=== PATIENT | male | born 1945 | race Caucasian/White ===

== ENCOUNTER 2019-10-23 11:34 | Inpatient (IN) ==
[2019-10-23] MEDS ORDERED: MOM Conc 10 ML UD.LIQ PO PRN (14:57)
[2019-10-23] MEDS ORDERED: Mag Hydrox/Al Hydrox/Simeth 30 ML UDC PO PRN (14:57)
[2019-10-23] MEDS ORDERED: Naloxone 0.4 MG/ML INJ IVP PRN (14:57)
[2019-10-23] MEDS ORDERED: Acetaminophen 325 MG TABLET PO PRN (14:57)
[2019-10-23] MEDS ORDERED: *HR* Promethazine 25 MG/ML VIAL IVP PRN (14:57)
[2019-10-23] MEDS ORDERED: Ondansetron 4 MG/2 ML VIAL IVP PRN (14:57)
[2019-10-23] MEDS: *HR* Heparin 5,000 UNIT/ML VIAL SQ SCH (17:44)
[2019-10-24 05:18] LABS: INR 1.2; Prothrombin Time 13.2 Seconds (9.4-12.1)
[2019-10-24 05:20] LABS: Basophils % 0.6 %; Eosinophils # 0.1 K/mcL (0.0-0.6); Eosinophils % 2.5 %; Hemoglobin 14.5 g/dL (12.9-16.9); Immature Granulocytes % 0.2 % (0-4); Lymphocytes # 0.8 K/mcL (0.6-4.6); Lymphocytes % 16.8 %; Mean Corpuscular Volume 94.2 fL (83.0-100.0); Mean Platelet Volume 9.9 fL (9.4-12.4); Monocytes # 0.4 K/mcL (0.0-1.3); Neutrophils # 3.4 K/mcL (1.6-8.9); Platelet Count 202 K/mcL (140-400); Red Blood Count 4.67 M/mcL (4.19-5.50); Red Cell Distribution Width 11.9 % (11.5-14.5); Segmented Neutrophils % 70.9 %; White Blood Count 4.8 K/mcL (4.3-11.1)
[2019-10-24] MEDS: *HR* Heparin 5,000 UNIT/ML VIAL SQ SCH ×2 (05:29→17:41)
[2019-10-24 05:42] LABS: BUN/Creatinine Ratio 16 (6-26); Blood Urea Nitrogen 16 mg/dL (8-23); Calcium 9.2 mg/dL (8.6-10.3); Carbon Dioxide 24 mEq/L (23-29); Chloride 107 mEq/L (98-107); Chol/HDL Ratio 3.5 (0-4.9); Cholesterol 183 mg/dL (< 200); Glucose 95 mg/dL (70-105); HDL Cholesterol 52 mg/dL (40-59); LDL Cholesterol,Calculated 108 mg/dL (0-99); Magnesium 2.2 mg/dL (1.6-2.6); Osmolality,Calculated 291 (280-300); Potassium 3.9 mEq/L (3.5-5.1); Sodium 140 mEq/L (136-145); Triglycerides 116 mg/dL (< 150); eGFR For African Americans > 60 (> 60); eGFR For Non-African Americans > 60 (> 60)
[2019-10-24] MEDS ORDERED: E-Z-HD (BARIUM SULF) SUSPENSION PO ONE (09:18)
[2019-10-24] MEDS ORDERED: E-Z-PAQUE (BARIUM SULF) SUSP 1 BOTTLE PO ONE (09:18)
[2019-10-24] MEDS: Aspirin Enteric Coated 81 MG Tablet PO SCH (11:10)
[2019-10-24] MEDS ORDERED: Isovue-370 500 ML BOTTLE IVP ONE (13:13)
[2019-10-25] MEDS: *HR* Heparin 5,000 UNIT/ML VIAL SQ SCH (05:15)
[2019-10-25 07:21] VITALS: BP 145/74
[2019-10-25] MEDS: Aspirin Enteric Coated 81 MG Tablet PO SCH (08:21)
[2019-10-25] MEDS ORDERED: Psyllium 1 PACKET POWD.PACK PO SCH (09:00)
[2019-10-25] MEDS ORDERED: lisinopriL 10 MG TABLET PO SCH (09:00)
[2019-10-25] MEDS ORDERED: Cholecalciferol (D-3) 1,000 UNIT (25MCG) TABLET PO SCH (09:00)
== END 2019-10-25 09:30 | disposition home or self-care (01) ==
LOC: 3BNU
PROVIDERS: ADMIT Internal Medicine; ATTEND Internal Medicine

== ENCOUNTER 2019-10-30 16:00 | Inpatient (IN) ==
[2019-10-30] MEDS ORDERED: Aspirin 325 MG TABLET PO ONE (16:45)
[2019-10-30 16:52] LABS: INR 1.3; Prothrombin Time 14.4 Seconds (9.4-12.1)
[2019-10-30 16:53] LABS: Hematocrit 44.9 % (37.5-50.1); Hemoglobin 15.7 g/dL (12.9-16.9); Mean Corpuscular Hemoglobin 32.3 pg (28.0-33.3); Mean Corpuscular Volume 92.4 fL (83.0-100.0); Mean Platelet Volume 9.4 fL (9.4-12.4); Platelet Count 257 K/mcL (140-400); Red Blood Count 4.86 M/mcL (4.19-5.50); White Blood Count 6.1 K/mcL (4.3-11.1)
[2019-10-30 16:55] LABS: Activated Partial Thrombo Time 26.4 Seconds (26.0-36.0)
[2019-10-30 17:08] LABS: Alanine Aminotransferase 23 Units/L (7-52); Albumin 4.2 g/dL (3.5-5.7); Albumin/Globulin Ratio 1.6 (1.1-2.2); Alkaline Phosphatase 67 Units/L (34-104); Aspartate Amino Transferase 15 Units/L (13-39); BUN/Creatinine Ratio 22 (6-26); Bilirubin,Total 0.9 mg/dL (0.3-1.0); Blood Urea Nitrogen 20 mg/dL (8-23); Calcium 9.3 mg/dL (8.6-10.3); Carbon Dioxide 24 mEq/L (23-29); Chloride 107 mEq/L (98-107); Globulin 2.7 g/dL (2.4-3.5); Glucose 103 mg/dL (70-105); Osmolality,Calculated 287 (280-300); Potassium 3.6 mEq/L (3.5-5.1); Sodium 137 mEq/L (136-145); Total Protein 6.9 g/dL (6.4-8.9); eGFR For African Americans > 60 (> 60); eGFR For Non-African Americans > 60 (> 60)
[2019-10-30] MEDS ORDERED: Ondansetron ODT 4 MG TAB.RAPDIS SL PRN (17:47)
[2019-10-30] MEDS ORDERED: Acetaminophen 325 MG TABLET PO PRN (17:47)
[2019-10-30] MEDS ORDERED: Gadolinium Contrast Agent (WT Based) IV PRN (18:37)
[2019-10-30 18:52] LABS: Bilirubin,Urine Small (Negative); Blood,Urine Negative (Negative); Clarity,Urine Clear (Clear); Color,Urine Yellow (Yellow); Glucose,Urine (UA) Normal (Normal); Ketones,Urine 15 mg/dL (Negative); Leukocyte Esterase,Urine Negative (Negative); Nitrite,Urine Negative (Negative); PH,Urine 5.5 pH Units (5.0-8.0); Protein,Urine Negative (Neg-Trace); Urobilinogen,Urine Normal (Normal)
[2019-10-31 05:11] LABS: Basophils # 0.1 K/mcL (0.0-0.2); Basophils % 0.9 %; Eosinophils # 0.1 K/mcL (0.0-0.6); Hematocrit 44.1 % (37.5-50.1); Hemoglobin 15.5 g/dL (12.9-16.9); Immature Granulocytes % 0.4 % (0-4); Lymphocytes # 0.9 K/mcL (0.6-4.6); Lymphocytes % 12.5 %; Mean Corpuscular HGB Conc 35.1 g/dL (31.6-35.5); Mean Corpuscular Hemoglobin 32.5 pg (28.0-33.3); Mean Corpuscular Volume 92.5 fL (83.0-100.0); Mean Platelet Volume 9.4 fL (9.4-12.4); Monocytes # 0.6 K/mcL (0.0-1.3); Monocytes % 8.9 %; Neutrophils # 5.4 K/mcL (1.6-8.9); Platelet Count 252 K/mcL (140-400); Red Blood Count 4.77 M/mcL (4.19-5.50); Red Cell Distribution Width 11.9 % (11.5-14.5); Segmented Neutrophils % 76.3 %; White Blood Count 7.1 K/mcL (4.3-11.1)
[2019-10-31 05:29] LABS: BUN/Creatinine Ratio 21 (6-26); Blood Urea Nitrogen 20 mg/dL (8-23); Calcium 9.1 mg/dL (8.6-10.3); Carbon Dioxide 23 mEq/L (23-29); Chloride 108 mEq/L (98-107); Chol/HDL Ratio 2.8 (0-4.9); Glucose 104 mg/dL (70-105); Osmolality,Calculated 287 (280-300); Potassium 3.8 mEq/L (3.5-5.1); Sodium 137 mEq/L (136-145); eGFR For African Americans > 60 (> 60); eGFR For Non-African Americans > 60 (> 60)
[2019-10-31] MEDS ORDERED: Isovue-370 500 ML BOTTLE IVP ONE (08:07)
[2019-10-31] MEDS ORDERED: Aspirin 81 MG TAB.CHEW PO SCH (09:00)
[2019-10-31] MEDS ORDERED: E-Z-HD (BARIUM SULF) SUSPENSION PO ONE (09:51)
[2019-10-31] MEDS ORDERED: E-Z-PAQUE (BARIUM SULF) SUSP 1 BOTTLE PO ONE (09:51)
[2019-10-31 10:30] LABS: Estimated Average Glucose 126 mg/dl
[2019-10-31] MEDS ORDERED: *HR* Rivaroxaban 10 MG TABLET PO SCH (17:00)
[2019-10-31] MEDS ORDERED: *HR* Heparin 5,000 UNIT/ML VIAL IVP PRN ×2 (21:20)
[2019-10-31 21:50] LABS: Hemoglobin 15.8 g/dL (12.9-16.9); Mean Corpuscular HGB Conc 34.3 g/dL (31.6-35.5); Mean Corpuscular Hemoglobin 32.2 pg (28.0-33.3); Mean Corpuscular Volume 93.9 fL (83.0-100.0); Mean Platelet Volume 9.2 fL (9.4-12.4); Platelet Count 254 K/mcL (140-400); Red Cell Distribution Width 12.2 % (11.5-14.5); White Blood Count 8.7 K/mcL (4.3-11.1)
[2019-10-31 21:56] LABS: INR 1.3; Prothrombin Time 14.8 Seconds (9.4-12.1)
[2019-10-31 21:58] LABS: Activated Partial Thrombo Time 27.7 Seconds (26.0-36.0)
[2019-10-31 21:59] LABS: Heparin anti-factor XA UFH < 0.04 IU/mL (0.30-0.70)
[2019-10-31] MEDS: lisinopriL 10 MG TABLET PO SCH (22:52)
[2019-10-31] MEDS: Heparin 25,000 UNIT/250 ML D5W 25,000 UNIT/250 ML IV.SOLN IVC SCH (23:13)
[2019-10-31] MEDS: 0.9 % Sodium Chloride 1,000 ML IVC SCH (23:13)
[2019-11-01 06:50] LABS: Hematocrit 44.9 % (37.5-50.1); Hemoglobin 15.2 g/dL (12.9-16.9); Mean Corpuscular HGB Conc 33.9 g/dL (31.6-35.5); Mean Corpuscular Hemoglobin 31.9 pg (28.0-33.3); Mean Corpuscular Volume 94.3 fL (83.0-100.0); Mean Platelet Volume 9.7 fL (9.4-12.4); Platelet Count 226 K/mcL (140-400); Red Blood Count 4.76 M/mcL (4.19-5.50); Red Cell Distribution Width 12.2 % (11.5-14.5)
[2019-11-01 07:10] LABS: BUN/Creatinine Ratio 23 (6-26); Blood Urea Nitrogen 24 mg/dL (8-23); Calcium 8.9 mg/dL (8.6-10.3); Carbon Dioxide 23 mEq/L (23-29); Chloride 108 mEq/L (98-107); Glucose 102 mg/dL (70-105); Osmolality,Calculated 296 (280-300); Potassium 3.6 mEq/L (3.5-5.1); Sodium 141 mEq/L (136-145); eGFR For African Americans > 60 (> 60); eGFR For Non-African Americans > 60 (> 60)
[2019-11-01] MEDS: lisinopriL 10 MG TABLET PO SCH (07:23)
[2019-11-01] MEDS ORDERED: Cholecalciferol (D-3) 1,000 UNIT (25MCG) TABLET PO SCH (09:00)
[2019-11-01] MEDS ORDERED: D5% in 0.9% NACL 1,000 ML IVC ONE (12:42)
[2019-11-01] MEDS ORDERED: *HR* Rivaroxaban 10 MG TABLET ONE ×2 (14:29)
[2019-11-01] MEDS: 0.9 % Sodium Chloride 1,000 ML IVC SCH (16:22)
[2019-11-02 03:39] LABS: Hematocrit 42.8 % (37.5-50.1); Hemoglobin 14.7 g/dL (12.9-16.9); Mean Corpuscular HGB Conc 34.3 g/dL (31.6-35.5); Mean Corpuscular Hemoglobin 32.1 pg (28.0-33.3); Mean Corpuscular Volume 93.4 fL (83.0-100.0); Mean Platelet Volume 9.6 fL (9.4-12.4); Platelet Count 219 K/mcL (140-400); Red Blood Count 4.58 M/mcL (4.19-5.50); Red Cell Distribution Width 12.2 % (11.5-14.5)
[2019-11-02 03:40] LABS: White Blood Count 10.5 K/mcL (4.3-11.1)
[2019-11-02 03:49] LABS: INR 1.6; Prothrombin Time 17.9 Seconds (9.4-12.1)
[2019-11-02 04:01] LABS: BUN/Creatinine Ratio 20 (6-26); Blood Urea Nitrogen 18 mg/dL (8-23); Calcium 8.7 mg/dL (8.6-10.3); Carbon Dioxide 23 mEq/L (23-29); Chloride 109 mEq/L (98-107); Glucose 117 mg/dL (70-105); Osmolality,Calculated 295 (280-300); Potassium 3.3 mEq/L (3.5-5.1); Sodium 141 mEq/L (136-145); eGFR For African Americans > 60 (> 60); eGFR For Non-African Americans > 60 (> 60)
[2019-11-02] MEDS: Heparin 25,000 UNIT/250 ML D5W 25,000 UNIT/250 ML IV.SOLN IVC SCH (05:19)
[2019-11-02] MEDS ORDERED: Potassium Chloride Elixir 20 MEQ/15 ML UDC GTUBE ONE ×3 (05:40→12:00)
[2019-11-02] MEDS: 0.9 % Sodium Chloride 1,000 ML IVC SCH (06:21)
[2019-11-02] MEDS: Aspirin 81 MG TAB.CHEW GTUBE SCH (10:18)
[2019-11-02] MEDS: lisinopriL 10 MG TABLET GTUBE SCH (10:18)
[2019-11-02] MEDS ORDERED: *HR* Rivaroxaban 10 MG TABLET PO SCH (17:00)
[2019-11-02] MEDS: *HR* Rivaroxaban 10 MG TABLET GTUBE SCH (17:28)
[2019-11-02] MEDS ORDERED: Scopolamine Patch 1.5 MG PATCH.TD72 TD ONE (23:10)
[2019-11-03 04:12] LABS: INR 1.6; Prothrombin Time 18.5 Seconds (9.4-12.1)
[2019-11-03 04:13] LABS: Hematocrit 43.6 % (37.5-50.1); Hemoglobin 14.7 g/dL (12.9-16.9); Mean Corpuscular HGB Conc 33.7 g/dL (31.6-35.5); Mean Corpuscular Hemoglobin 31.1 pg (28.0-33.3); Mean Corpuscular Volume 92.2 fL (83.0-100.0); Mean Platelet Volume 9.8 fL (9.4-12.4); Platelet Count 216 K/mcL (140-400); Red Blood Count 4.73 M/mcL (4.19-5.50); Red Cell Distribution Width 12.1 % (11.5-14.5); White Blood Count 9.6 K/mcL (4.3-11.1)
[2019-11-03 04:25] LABS: BUN/Creatinine Ratio 21 (6-26); Blood Urea Nitrogen 15 mg/dL (8-23); Calcium 8.8 mg/dL (8.6-10.3); Carbon Dioxide 24 mEq/L (23-29); Chloride 107 mEq/L (98-107); Glucose 113 mg/dL (70-105); Osmolality,Calculated 288 (280-300); Potassium 3.6 mEq/L (3.5-5.1); Sodium 138 mEq/L (136-145); eGFR For African Americans > 60 (> 60); eGFR For Non-African Americans > 60 (> 60)
[2019-11-03] MEDS: Aspirin 81 MG TAB.CHEW GTUBE SCH (08:56)
[2019-11-03] MEDS: lisinopriL 10 MG TABLET GTUBE SCH (08:56)
[2019-11-03] MEDS: *HR* Rivaroxaban 10 MG TABLET GTUBE SCH (16:01)
[2019-11-04] MEDS ORDERED: polyethylene glycoL 3350 17 GM POWD.PACK PO PRN (04:15)
[2019-11-04] MEDS: Aspirin 81 MG TAB.CHEW GTUBE SCH (07:58)
[2019-11-04] MEDS: lisinopriL 10 MG TABLET GTUBE SCH (07:58)
[2019-11-04] MEDS ORDERED: E-Z-PAQUE (BARIUM SULF) SUSP 1 BOTTLE PO ONE (10:49)
[2019-11-04] MEDS: Scopolamine Patch 1.5 MG PATCH.TD72 TD SCH (12:26)
[2019-11-05] MEDS: lisinopriL 10 MG TABLET GTUBE SCH (07:57)
[2019-11-05] MEDS: Aspirin 81 MG TAB.CHEW GTUBE SCH (08:37)
[2019-11-05] MEDS: polyethylene glycoL 3350 17 GM POWD.PACK GTUBE PRN (20:46)
[2019-11-06] MEDS ORDERED: Ondansetron 4 MG/2 ML VIAL IVP ONE (01:36)
[2019-11-06] MEDS ORDERED: Lidocaine -MPF 2% 2 ML VIAL ONE ×3 (10:39→12:06)
[2019-11-06] MEDS: lisinopriL 10 MG TABLET GTUBE SCH (12:01)
[2019-11-06] MEDS: Aspirin 81 MG TAB.CHEW GTUBE SCH (12:01)
[2019-11-06] MEDS ORDERED: *HR* PHENYLEPHRINE 1,000 MCG/10 ML SYRINGE IVP ONE (12:07)
[2019-11-06] MEDS: *HR* Rivaroxaban 10 MG TABLET GTUBE SCH (16:11)
[2019-11-07] MEDS: Scopolamine Patch 1.5 MG PATCH.TD72 TD SCH (12:53)
[2019-11-07] MEDS: lisinopriL 10 MG TABLET GTUBE SCH (12:53)
[2019-11-07] MEDS: Aspirin 81 MG TAB.CHEW GTUBE SCH (12:53)
[2019-11-07] MEDS: *HR* Rivaroxaban 10 MG TABLET GTUBE SCH (17:10)
[2019-11-08] MEDS ORDERED: Ipratropium/Albuterol Neb 3 ML IH ONE (05:18)
[2019-11-08] MEDS: Aspirin 81 MG TAB.CHEW GTUBE SCH (09:49)
[2019-11-08] MEDS: lisinopriL 10 MG TABLET GTUBE SCH (16:24)
[2019-11-08] MEDS: *HR* Rivaroxaban 10 MG TABLET GTUBE SCH (16:26)
[2019-11-08] MEDS: GuaiFENesin Liq 200 MG/10 ML UDC GTUBE PRN (23:32)
[2019-11-09] MEDS: lisinopriL 10 MG TABLET GTUBE SCH ×2 (10:03→10:07)
[2019-11-09] MEDS: Aspirin 81 MG TAB.CHEW GTUBE SCH (10:07)
[2019-11-09] MEDS: polyethylene glycoL 3350 17 GM POWD.PACK GTUBE PRN (10:11)
[2019-11-09] MEDS: GuaiFENesin Liq 200 MG/10 ML UDC GTUBE PRN ×2 (10:14→15:05)
[2019-11-09 10:27] LABS: Basophils # 0.1 K/mcL (0.0-0.2); Basophils % 0.6 %; Eosinophils # 0.1 K/mcL (0.0-0.6); Eosinophils % 0.8 %; Hematocrit 45.7 % (37.5-50.1); Hemoglobin 15.4 g/dL (12.9-16.9); Immature Granulocytes % 0.4 % (0-4); Lymphocytes # 0.7 K/mcL (0.6-4.6); Lymphocytes % 7.8 %; Mean Corpuscular HGB Conc 33.7 g/dL (31.6-35.5); Mean Corpuscular Hemoglobin 31.9 pg (28.0-33.3); Mean Corpuscular Volume 94.6 fL (83.0-100.0); Mean Platelet Volume 10.6 fL (9.4-12.4); Monocytes # 0.8 K/mcL (0.0-1.3); Monocytes % 8.2 %; Neutrophils # 7.8 K/mcL (1.6-8.9); Platelet Count 296 K/mcL (140-400); Red Blood Count 4.83 M/mcL (4.19-5.50); Red Cell Distribution Width 12.2 % (11.5-14.5); Segmented Neutrophils % 82.2 %; White Blood Count 9.5 K/mcL (4.3-11.1)
[2019-11-09 10:35] LABS: BUN/Creatinine Ratio 26 (6-26); Blood Urea Nitrogen 20 mg/dL (8-23); Calcium 9.1 mg/dL (8.6-10.3); Carbon Dioxide 26 mEq/L (23-29); Chloride 102 mEq/L (98-107); Glucose 145 mg/dL (70-105); Osmolality,Calculated 285 (280-300); Potassium 3.9 mEq/L (3.5-5.1); Sodium 135 mEq/L (136-145); eGFR For African Americans > 60 (> 60); eGFR For Non-African Americans > 60 (> 60)
[2019-11-09] MEDS: *HR* Rivaroxaban 10 MG TABLET GTUBE SCH (16:40)
[2019-11-10] MEDS ORDERED: Lactulose Oral Soln 20 GM/30 ML UDC PO ONE (09:17)
[2019-11-10] MEDS: Aspirin 81 MG TAB.CHEW GTUBE SCH (09:18)
[2019-11-10] MEDS: lisinopriL 10 MG TABLET GTUBE SCH (09:18)
[2019-11-10] MEDS: Scopolamine Patch 1.5 MG PATCH.TD72 TD SCH (11:27)
[2019-11-10 11:36] VITALS: BP 102/67
[2019-11-10] MEDS ORDERED: Bisacodyl 10 MG RECTAL SUPPOSITORY RC PRN (12:39)
== END 2019-11-10 15:43 | DRG 64 ==
LOC: 2NENU 16:00 → EMEROOARM 16:00 → 2NENU 22:30 → SUATTDRO 10-31 10:27
PROVIDERS: ADMIT Family Medicine; ATTEND Internal Medicine